=== PATIENT | male | born 1955 | race Two or more races ===

== ENCOUNTER 2020-07-18 01:20 | Inpatient (IN) | payer BC, OTHER ==
[~2020-07-18] VITALS: Ht 167.6 cm; Wt 74.5 kg
[2020-07-18 01:54] LABS: BASOPHILS % (AUTO) 1 % (0-1); EOSINOPHILS % (AUTO) 3 % (1-7); LYMPHOCYTES % (AUTO) 20 % (22-44); MEAN CORPUSCULAR HEMOGLOBIN 29.6 pg (27.5-34.5); MEAN CORPUSCULAR HGB CONC 33.7 g/dL (33.2-36.2); MEAN PLATELET VOLUME 8.4 fL (7.4-10.4); MONOCYTES % (AUTO) 8 % (2-9); NEUTROPHILS % (AUTO) 68 % (42-75); PLATELET COUNT 248 x10^3/uL (130-400); RED BLOOD COUNT 5.12 x10^6/uL (4.38-5.82); RED CELL DISTRIBUTION WIDTH 14.3 % (9.4-14.8)
[2020-07-18 02:02] LABS: ALANINE AMINOTRANSFERASE 107 U/L (12-78); ALBUMIN 3.3 g/dL (3.4-5.0); ANION GAP 5 mmol/L (5-15); CALCIUM 8.5 mg/dL (8.5-10.1); CHLORIDE 108 mmol/L (98-107); CREATININE 1.34 mg/dL (0.7-1.3)
[2020-07-18 02:06] LABS: ALKALINE PHOSPHATASE 62 U/L (45-117); BILIRUBIN,TOTAL 0.6 mg/dL (0.2-1.0); TOTAL PROTEIN 6.8 g/dL (6.4-8.2)
[2020-07-18] MEDS ORDERED: ASPIRIN 81 MG TABLET CHEW ONE ×2 (02:11→02:31)
--- NOTE | 2020-07-18 02:17 | NUR ---
INITIAL PT CONTACT. PT PRESENTS TO ED C/O BILATERAL LOWER EXTREMITY EDEMA X7 DAYS. PT ALSO C/O INCREASED SOB OVER THE SAME TIME. PT DENIES ANY MEDICAL HX. PT REPORTS MILD INTERMITTENT CHEST PAIN AT THIS TIME. PT SITTING UPRIGHT ON GURNEY, NADN, VSS. PLACED ON CONTINUOUS PULSE OX AND CARDIAC MONITORING. ERP AT BEDSIDE. REPEAT EKG COMPLETED. CALL LIGHT AND BELONGINGS WITHIN REACH
[2020-07-18] MEDS ORDERED: ASPIRIN 81 MG TABLET CHEW PO ONE ×2 (02:30)
[2020-07-18] MEDS ORDERED: HEPARIN 5,000 UNITS/ML, 1ML IV ONE (02:30)
[2020-07-18] MEDS ORDERED: FUROSEMIDE 20 MG/2 ML IV ONE (02:30)
[2020-07-18] MEDS ORDERED: HEPARIN 5,000 UNITS/ML, 1ML IV PRN (02:30)
[2020-07-18] MEDS ORDERED: FUROSEMIDE 20 MG/2 ML ONE (02:31)
[2020-07-18] MEDS ORDERED: HEPARIN 25,000 UNITS/250ML PMX 250 ML ONE (02:32)
[2020-07-18] MEDS ORDERED: HEPARIN 5,000 UNITS/ML, 1ML ONE (02:52)
[2020-07-18] MEDS: HEPARIN 25,000 UNITS/250ML PMX 250 ML IV PRN (02:55)
--- NOTE | 2020-07-18 03:18 | NUR ---
Pt to be admitted to [facility], room 511-1. Report called to SOUMYA SARABIA.
[2020-07-18 03:49] VITALS: BP 148/89
[2020-07-18] MEDS ORDERED: OXYcodone IR 5MG TABLET PO PRN (04:00)
[2020-07-18] MEDS ORDERED: ONDANSETRON 2MG/ML, 2ML IVPush PRN (04:00)
[2020-07-18] MEDS ORDERED: ONDANSETRON ODT 4 MG PO PRN (04:00)
[2020-07-18] MEDS ORDERED: PROMETHAZINE 25 MG/ML, 1ML IM PRN (04:00)
[2020-07-18] MEDS ORDERED: ACETAMINOPHEN 325 MG TABLET PO PRN (04:00)
[2020-07-18] MEDS ORDERED: NITROGLYCERIN 0.4 MG BOTTLE (25 TABS) SL PRN (04:00)
[2020-07-18] MEDS ORDERED: DOCUSATE 100 MG CAPSULE PO PRN (04:00)
[2020-07-18] MEDS ORDERED: morphine SULFATE 10 MG/ML, 1ML IVPush PRN (04:00)
[2020-07-18] MEDS ORDERED: BISACODYL 10 MG SUPP PR PRN (04:00)
[2020-07-18] MEDS ORDERED: hydrALAzine 20 MG/ML, 1ML IVPush PRN (04:00)
[2020-07-18] MEDS ORDERED: POLYETHYLENE GLYCOL 17 GM PACKET PO PRN (04:00)
[2020-07-18 05:34] LABS: CHOL/HDL RATIO 3.1; CHOLESTEROL, TOTAL 154 mg/dL (140-239); FREE T4 (FREE THYROXINE) 1.37 ng/dL (0.76-1.46); HDL CHOL % 32 % (26-37); HDL CHOLESTEROL (DIRECT) 49 mg/dL (40-60); LDL CHOLESTEROL,CALCULATED 97 mg/dL (54-169); TRIGLYCERIDES 41 mg/dL (50-200); VLDL CHOLESTEROL 8 mg/dL (0-25)
[2020-07-18] MEDS: ASPIRIN 325 MG TABLET EC PO SCH (06:31)
[2020-07-18] MEDS: FUROSEMIDE 20 MG/2 ML IV SCH ×2 (06:31→17:31)
[2020-07-18 07:10] VITALS: BP 128/82
[2020-07-18] MEDS: LISINOPRIL 5 MG TABLET PO SCH (11:18)
[2020-07-18 13:40] VITALS: BP 136/84
[2020-07-18] MEDS ORDERED: FENTANYL PF 100 MCG/2ML ONE (16:03)
[2020-07-18] MEDS ORDERED: MIDAZOLAM 1 MG/ML, 5ML ONE (16:03)
[2020-07-18] MEDS ORDERED: HEPARIN 1,000 UNITS/ML, 10ML ONE (16:04)
[2020-07-18] MEDS ORDERED: LIDOCAINE-MPF 1%, 5ML ONE (16:04)
[2020-07-18] MEDS ORDERED: VERAPAMIL 2.5 MG/ML, 2ML ONE (16:04)
[2020-07-18 17:29] VITALS: BP 132/86
[2020-07-18] MEDS: CARVEDILOL 3.125 MG TABLET PO SCH (17:30)
[2020-07-18] MEDS: SODIUM CHLORIDE 0.9% 1,000 ML IV SCH ×2 (17:31→21:31)
[2020-07-18 19:54] VITALS: BP 125/81
[2020-07-18] MEDS: ATORVASTATIN 80 MG TABLET PO SCH (20:09)
[2020-07-19 01:20] VITALS: BP 132/84
[2020-07-19] MEDS: ASPIRIN 325 MG TABLET EC PO SCH (05:43)
[2020-07-19] MEDS: CARVEDILOL 3.125 MG TABLET PO SCH ×2 (05:43→17:04)
[2020-07-19 06:08] LABS: BASOPHILS % (AUTO) 1 % (0-1); EOSINOPHILS % (AUTO) 5 % (1-7); LYMPHOCYTES % (AUTO) 24 % (22-44); MEAN CORPUSCULAR HEMOGLOBIN 29.6 pg (27.5-34.5); MEAN CORPUSCULAR HGB CONC 34.5 g/dL (33.2-36.2); MEAN PLATELET VOLUME 8.5 fL (7.4-10.4); MONOCYTES % (AUTO) 8 % (2-9); NEUTROPHILS % (AUTO) 63 % (42-75); PLATELET COUNT 235 x10^3/uL (130-400); RED BLOOD COUNT 4.85 x10^6/uL (4.38-5.82); RED CELL DISTRIBUTION WIDTH 14.2 % (9.4-14.8)
[2020-07-19 06:11] LABS: ALANINE AMINOTRANSFERASE 77 U/L (12-78); ANION GAP 9 mmol/L (5-15); CALCIUM 8.7 mg/dL (8.5-10.1); CHLORIDE 108 mmol/L (98-107); CREATININE 0.98 mg/dL (0.7-1.3)
[2020-07-19 06:16] LABS: ALKALINE PHOSPHATASE 55 U/L (45-117); BILIRUBIN,TOTAL 1.2 mg/dL (0.2-1.0); TOTAL PROTEIN 6.1 g/dL (6.4-8.2)
[2020-07-19 06:40] VITALS: BP 111/67
[2020-07-19] MEDS: FUROSEMIDE 20 MG/2 ML IV SCH ×2 (08:56→17:04)
[2020-07-19] MEDS: LISINOPRIL 5 MG TABLET PO SCH (08:56)
[2020-07-19] MEDS: HEPARIN 25,000 UNITS/250ML PMX 250 ML IV PRN (10:09)
[2020-07-19 14:00] VITALS: BP 99/63
[2020-07-19 19:40] VITALS: BP 120/74
[2020-07-19] MEDS: ATORVASTATIN 80 MG TABLET PO SCH (21:58)
[2020-07-20 01:14] VITALS: BP 122/74
[2020-07-20] MEDS: ASPIRIN 325 MG TABLET EC PO SCH (05:43)
[2020-07-20] MEDS: CARVEDILOL 3.125 MG TABLET PO SCH ×3 (05:43→22:19)
[2020-07-20 07:21] LABS: BASOPHILS % (AUTO) 1 % (0-1); EOSINOPHILS % (AUTO) 6 % (1-7); LYMPHOCYTES % (AUTO) 19 % (22-44); MEAN CORPUSCULAR HEMOGLOBIN 29.3 pg (27.5-34.5); MEAN CORPUSCULAR HGB CONC 33.5 g/dL (33.2-36.2); MEAN PLATELET VOLUME 9.3 fL (7.4-10.4); MONOCYTES % (AUTO) 8 % (2-9); NEUTROPHILS % (AUTO) 67 % (42-75); PLATELET COUNT 238 x10^3/uL (130-400); RED BLOOD COUNT 4.94 x10^6/uL (4.38-5.82); RED CELL DISTRIBUTION WIDTH 14.1 % (9.4-14.8)
[2020-07-20 07:24] LABS: INTERNATIONAL NORMALIZED RATIO 1.09 (0.93-1.1); PROTHROMBIN TIME 11.6 Seconds (9.6-11.5)
[2020-07-20 07:26] LABS: CHLORIDE 108 mmol/L (98-107)
[2020-07-20 07:33] LABS: ALANINE AMINOTRANSFERASE 114 U/L (12-78); ALBUMIN 3.1 g/dL (3.4-5.0); ALKALINE PHOSPHATASE 57 U/L (45-117); ANION GAP 7 mmol/L (5-15); BILIRUBIN,TOTAL 0.7 mg/dL (0.2-1.0); CALCIUM 8.9 mg/dL (8.5-10.1); CREATININE 0.94 mg/dL (0.7-1.3); TOTAL PROTEIN 6.2 g/dL (6.4-8.2)
[2020-07-20 07:37] VITALS: BP 122/79
[2020-07-20] MEDS: FUROSEMIDE 20 MG/2 ML IV SCH ×2 (08:50→17:57)
[2020-07-20] MEDS: SODIUM CHLORIDE FLUSH 10ML SYR IVF SCH ×2 (08:57→21:16)
[2020-07-20 10:28] LABS: MICROSCOPIC NOT IND
[2020-07-20] MEDS: LISINOPRIL 5 MG TABLET PO SCH (10:45)
[2020-07-20 13:11] VITALS: BP 132/83
[2020-07-20] MEDS: HEPARIN 25,000 UNITS/250ML PMX 250 ML IV PRN (14:52)
[2020-07-20 21:12] VITALS: BP 103/65
[2020-07-20] MEDS: ATORVASTATIN 80 MG TABLET PO SCH (21:15)
[2020-07-20] MEDS ORDERED: CHLORHEXIDINE 15 ML UDC MM ONE (22:00)
[2020-07-21 00:35] VITALS: BP 116/76
[2020-07-21] MEDS ORDERED: INSULIN LISPRO 100 UNITS/ML, PEN SQ-INSULIN ONE ×2 (05:00→11:00)
[2020-07-21] MEDS ORDERED: METOPROLOL TARTRATE 25 MG TAB PO ONE ×2 (05:00→11:00)
[2020-07-21] MEDS: ASPIRIN 325 MG TABLET EC PO SCH (06:45)
[2020-07-21 07:25] VITALS: BP 128/82
[2020-07-21] MEDS ORDERED: POTASSIUM CHLORIDE 80 MEQ, SODIUM BICARBONATE 8.4% 10 MEQ, MAGNESIUM SULFATE 0.5 GM, LI... IV PRN (07:30)
[2020-07-21] MEDS ORDERED: REGULAR INSULIN 100 UNITS in SODIUM CHLORIDE 0.9% 99 ML IV PRN ×2 (07:30→13:30)
[2020-07-21] MEDS ORDERED: MANNITOL PMX 20% 500 ML IVPB PRN (07:30)
[2020-07-21] MEDS ORDERED: DEXMEDETOMIDINE 200 MCG in SODIUM CHLORIDE 0.9% 48 ML IV PRN (07:30)
[2020-07-21] MEDS ORDERED: ALBUMIN HUMAN 5% 500 ML IV PRN ×2 (07:30→13:30)
[2020-07-21] MEDS ORDERED: EPINEPHRINE 5 MG in SODIUM CHLORIDE 0.9% 245 ML IV PRN ×2 (07:30→13:30)
[2020-07-21] MEDS ORDERED: PHENYLEPHRINE 50 MG in SODIUM CHLORIDE 0.9% 245 ML IV PRN ×2 (07:30→13:30)
[2020-07-21] MEDS ORDERED: VANCOMYCIN 1,200 MG in SODIUM CHLORIDE 0.9% 250 ML IVPB ONE (07:30)
[2020-07-21] MEDS ORDERED: CEFUROXIME 1.5 GM in SODIUM CHLORIDE 0.9% 50 ML IVPB ONE (07:30)
[2020-07-21] MEDS: SODIUM CHLORIDE FLUSH 10ML SYR IVF SCH (08:18)
[2020-07-21] MEDS: FUROSEMIDE 20 MG/2 ML IV SCH (08:18)
[2020-07-21] MEDS: LISINOPRIL 5 MG TABLET PO SCH (08:19)
[2020-07-21] MEDS ORDERED: MUPIROCIN OINT 2%, 22GM ONE (10:22)
[2020-07-21] MEDS ORDERED: CHLORHEXIDINE 15 ML UDC ONE (10:22)
[2020-07-21 10:48] VITALS: BP_SYST 135; BP_SYST 148; BP_DIAS 85; BP_DIAS 92
[2020-07-21] MEDS ORDERED: HEPARIN 1,000 UNITS/ML, 10ML ONE (12:03)
[2020-07-21] MEDS ORDERED: PAPAVERINE 30 MG/ML, 2ML ONE (12:03)
[2020-07-21] MEDS ORDERED: MIDAZOLAM 10MG/2 ML ONE (12:19)
[2020-07-21] MEDS ORDERED: FENTANYL PF 250 MCG/5ML ONE ×4 (12:19)
[2020-07-21] MEDS ORDERED: ROCURONIUM 10MG/ML,5ML ONE ×3 (12:21→17:29)
[2020-07-21] MEDS ORDERED: AMINOCAPROIC ACID 250 MG/ML, 20ML ONE (12:21)
[2020-07-21] MEDS ORDERED: CALCIUM CHLORIDE 13.6 MEQ in SODIUM CHLORIDE 0.9% 100 ML IVPB PRN (13:30)
[2020-07-21] MEDS ORDERED: GLUCAGON 1 MG IM PRN (13:30)
[2020-07-21] MEDS ORDERED: DOBUTAMINE 250 MG in SODIUM CHLORIDE 0.9% 230 ML IV PRN (13:30)
[2020-07-21] MEDS ORDERED: DEXTROSE 50%, 50ML SYRINGE IVPush PRN (13:30)
[2020-07-21] MEDS ORDERED: PROMETHAZINE 25 MG SUPP PR PRN (13:30)
[2020-07-21] MEDS ORDERED: DEXTROSE 4 GM TAB.CHEW PO PRN (13:30)
[2020-07-21] MEDS ORDERED: LACTATED RINGERS 500 ML IV PRN (13:30)
[2020-07-21] MEDS ORDERED: LORazepam 1MG TABLET PO PRN (13:30)
[2020-07-21] MEDS ORDERED: SODIUM BICARB 8.4%, 50ML SYRINGE IV PRN (13:30)
[2020-07-21] MEDS ORDERED: NITROGLYCERIN/D5W PMX 250 ML IV PRN (13:30)
[2020-07-21] MEDS ORDERED: SODIUM CHLORIDE 0.9% 1,000 ML IV SCH (13:30)
[2020-07-21] MEDS ORDERED: HYDROmorphone 1 MG/ML, 1ML INJ IV PRN (13:30)
[2020-07-21] MEDS ORDERED: MIDAZOLAM 1 MG/ML, 2ML IV PRN (13:30)
[2020-07-21] MEDS ORDERED: FENTANYL PF 100 MCG/2ML IV PRN (13:30)
[2020-07-21] MEDS ORDERED: KSCALE TO 4.5 IV SCH (13:30)
[2020-07-21] MEDS ORDERED: ONDANSETRON 2MG/ML, 2ML IVPush PRN (13:30)
[2020-07-21] MEDS ORDERED: DEXMEDETOMIDINE 400 MCG in SODIUM CHLORIDE 0.9% 96 ML IV PRN (13:30)
[2020-07-21] MEDS ORDERED: VASOPRESSIN 20 UNIT in SODIUM CHLORIDE 0.9% 99 ML IV PRN ×2 (13:30→18:30)
[2020-07-21] MEDS: INSULIN LISPRO 100 UNITS/ML, PEN SQ-INSULIN SCH ×2 (13:30→17:30)
[2020-07-21] MEDS ORDERED: OXYcodone IR 5MG TABLET PO PRN ×3 (13:30)
[2020-07-21] MEDS ORDERED: INSULIN REGULAR 100 UNITS/ML, 3ML VIAL IVPush PRN (13:30)
[2020-07-21] MEDS ORDERED: PROCHLORPERAZINE 5 MG/ML, 2ML IVPush PRN (13:30)
[2020-07-21] MEDS ORDERED: ACETAMINOPHEN 500 MG TABLET PO SCH (14:30)
[2020-07-21] MEDS ORDERED: MAGNESIUM SULFATE 1 GM in SODIUM CHLORIDE 0.9% 100 ML IVPB SCH (15:00)
[2020-07-21] MEDS ORDERED: PROPOFOL 10 MG/ML, 20ML ONE (15:56)
[2020-07-21] MEDS ORDERED: PROTAMINE SULFATE 10 MG/ML, 25ML ONE ×4 (15:56→17:04)
[2020-07-21] MEDS ORDERED: HEPARIN 1,000 UNITS/ML, 30ML ONE ×3 (17:04→19:51)
[2020-07-21] MEDS ORDERED: AMIODARONE 50 MG/ML, 3ML ONE (17:46)
[2020-07-21] MEDS ORDERED: METHYLENE BLUE 50 MG/10 ML AMP ONE (18:24)
[2020-07-21] MEDS ORDERED: EPINEPHRINE SYRINGE 0.1 MG/ML, 10ML ONE ×2 (18:54)
[2020-07-21] MEDS ORDERED: NOREPINEPHRINE 32 MG in SODIUM CHLORIDE 0.9% 218 ML IV PRN (19:00)
[2020-07-21] MEDS ORDERED: MILRINONE 1 MG/ML, 10ML IV ONE (19:08)
[2020-07-21] MEDS ORDERED: SODIUM BICARB 8.4%, 50ML SYRINGE ONE (19:50)
[2020-07-21] MEDS ORDERED: SODIUM BICARBONATE 1 MEQ/ML, 50ML VIAL ONE (19:50)
[2020-07-21] MEDS ORDERED: LIDOCAINE 2%, 20ML ONE (19:51)
[2020-07-21] MEDS ORDERED: ALBUMIN HUMAN 25% 50 ML ONE (19:52)
[2020-07-21] MEDS ORDERED: MAGNESIUM SULFATE PMX 2GM/50ML 0 ML ONE (19:52)
[2020-07-21] MEDS ORDERED: CALCIUM CHLORIDE 10%, 10ML SYR ONE (19:53)
[2020-07-21] MEDS ORDERED: POTASSIUM CHLORIDE 40MEQ/20ML IV ONE (19:54)
[2020-07-21] MEDS ORDERED: VANCOMYCIN 1,100 MG in SODIUM CHLORIDE 0.9% 250 ML IVPB SCH (20:00)
[2020-07-21] MEDS ORDERED: CEFUROXIME 1.5 GM in SODIUM CHLORIDE 0.9% 50 ML IVPB SCH (20:00)
[2020-07-21] MEDS ORDERED: SODIUM CHLORIDE FLUSH 10ML SYR IVF SCH (21:00)
[2020-07-21] MEDS ORDERED: DIPHENHYDRAMINE 25 MG CAPSULE PO PRN (21:00)
[2020-07-21] MEDS ORDERED: SENNA/DOCUSATE TABLET PO SCH (21:00)
[2020-07-21] MEDS ORDERED: DOCUSATE 100 MG CAPSULE PO SCH (21:00)
[2020-07-22] MEDS ORDERED: MUPIROCIN OINT 2%, 15GM NAS SCH (06:00)
[2020-07-22] MEDS ORDERED: CARVEDILOL 3.125 MG TABLET PO SCH (06:00)
[2020-07-22] MEDS ORDERED: OMEPRAZOLE 20 MG CAPSULE.DR PO SCH (07:30)
[2020-07-22] MEDS ORDERED: ASPIRIN 81 MG TABLET EC PO SCH (09:00)
[2020-07-22] MEDS ORDERED: POLYETHYLENE GLYCOL 17 GM PACKET PO SCH (09:00)
[2020-07-22] MEDS ORDERED: CHLORHEXIDINE 15 ML UDC MM SCH (09:00)
[2020-07-22] MEDS ORDERED: CLOPIDOGREL 75 MG TABLET PO SCH (09:00)
[2020-07-23] MEDS ORDERED: ENOXAPARIN 40 MG/0.4 ML SQ SCH (09:00)
[2020-07-23] MEDS ORDERED: LISINOPRIL 5 MG TABLET PO SCH (10:30)
[2020-07-23] MEDS ORDERED: BISACODYL 10 MG SUPP PR PRN (13:30)
== END 2020-07-22 03:29 | disposition expired | DRG 235 ==
LOC: ED 03:37 → EDIP 03:38 → 5SO 03:39 → CSU 07-21 12:57 → CCU 07-21 13:23
PROVIDERS: ADMIT Internal Medicine; ATTEND Internal Medicine
PROC: 5A02210 Assistance with Cardiac Output using Balloon Pump, Continuous (ICD-10-PCS; 2020-07-21)
PROC: 02QA0ZZ Repair Heart, Open Approach (ICD-10-PCS; 2020-07-21)
PROC: 06BP4ZZ Excision of Right Saphenous Vein, Percutaneous Endoscopic Approach (ICD-10-PCS; 2020-07-21)
PROC: 5A1221Z Performance of Cardiac Output, Continuous (ICD-10-PCS; 2020-07-21)
PROC: B246ZZ4 Ultrasonography of Right and Left Heart, Transesophageal (ICD-10-PCS; 2020-07-21)
PROC: 30233R1 Transfusion of Nonautologous Platelets into Peripheral Vein, Percutaneous Approach (ICD-10-PCS; 2020-07-21)
PROC: 30233K1 Transfusion of Nonautologous Frozen Plasma into Peripheral Vein, Percutaneous Approach (ICD-10-PCS; 2020-07-21)
PROC: 0210099 Bypass Coronary Artery, One Artery from Left Internal Mammary with Autologous Venous Tissue, Open Approach (ICD-10-PCS; principal; 2020-07-21 07:30)
DX: I21.4 Non-ST elevation (NSTEMI) myocardial infarction (principal); I50.21 Acute systolic (congestive) heart failure; Z20.822 Contact with and (suspected) exposure to COVID-19; I25.10 Atherosclerotic heart disease of native coronary artery without angina pectoris; I11.0 Hypertensive heart disease with heart failure; I25.5 Ischemic cardiomyopathy; I34.0 Nonrheumatic mitral (valve) insufficiency; I46.9 Cardiac arrest, cause unspecified; R57.0 Cardiogenic shock; Z87.891 Personal history of nicotine dependence; Z79.899 Other long term (current) drug therapy
CPT/HCPCS: 36415; 93458; 96374; 99285; J3490; S0017; 71045; 80053; 80061; 81003; 82330; 82803; 82947; 82962; 83036; 83735; 83880; 84100; 84132; 84295; 84439; 84443; 84484; 85014; 85025; 85347; 85520; 85610; 85730; 86850; 86900; 86923; 87635; 93005; 93306; 93312; 93321; 93325; 93880; 93970; C1725; C1769; C1894; G0378; J0171; J0697; J1644; J1815; J2250; J2260; J2704; J2720; J3010; J3370; J3475; J3480; P9047; Q9968; C1751; C1760; J0282; J1940; J2370; J2440; J7050; P9017; P9035; Q9967